=== PATIENT | female | born 1950 | race Caucasian/White ===

== ENCOUNTER 2016-08-26 15:19 | Emergency (ER) | payer MEDICARE, OTHER ==
--- NOTE | ~2016-08-26 | EKG ---
PATIENT: KANNAN KAUR UNIT #: [id number] Ventricular Rate: 76 BPM Atrial Rate: 76 BPM P-R Interval: 158 ms QRS Duration: 74 ms Q-T Interval: 372 ms QTC Calculation(Bezet): 418 ms P [place]: 21 degrees Calculated R [place]: -6 degrees Calculated T [place]: 22 degrees Diagnosis Line: Normal sinus rhythm Diagnosis Line: Low voltage QRS Diagnosis Line: Cannot rule out Inferior infarct (cited on or Diagnosis Line: before 26-AUG-2016) Diagnosis Line: Abnormal ECG Diagnosis Line: When compared with ECG of 20-NOV-2015 18:22, Diagnosis Line: Questionable change in initial forces of Inferior Diagnosis Line: leads Diagnosis Line: Confirmed by ERICA WATTERS MD ([id number]) on 08/26/2016 Diagnosis Line: 10:57:02 PM INTERPRETING MD: DUONG ZARATE
[2016-08-26 13:44] LABS: BASOPHIL% 0.7 % (0-2.5); EOSINOPHIL# 0.1 X10e3 (0-0.7); EOSINOPHIL% 1.5 % (0.0-7.0); HEMATOCRIT 35.1 % (35.0-45.0); HEMOGLOBIN 11.5 gm/dL (12.0-16.0); LYMPHOCYTE% 27.7 % (17.0-45.0); MEAN CELL VOLUME 82.9 FL (83-96); MEAN CORPUSCULAR HEMOGLOBIN 27.1 PG (28-34); MEAN CORPUSCULAR HGB CONC 32.7 g/dL (30-36); MEAN PLATELET VOLUME 9.6 FL (6.5-11.5); MONOCYTE# 0.4 X10e3 (0-1.0); MONOCYTE% 5.5 % (3.0-12.0); NEUTROPHIL# 4.8 X10e3 (1.5-7.1); NEUTROPHIL% 64.6 % (40-75); PLATELET COUNT 186 X10e3 (140-420); RED BLOOD COUNT 4.23 X10e (3.90-5.30); RED CELL DISTRIBUTION WIDTH 13.8 % (11.0-15.5); WHITE BLOOD COUNT 7.4 X10e3 (4.0-10.5)
[2016-08-26 13:47] LABS: DIFF IND NO
[2016-08-26 14:08] LABS: ALBUMIN SERUM 3.6 g/dL (3.5-5.0); ALKALINE PHOSPHATASE 87 U/L (32-92); ALT (SGPT) 20 U/L (10-40); AST (SGOT) 20 U/L (10-42); BILIRUBIN,TOTAL 0.6 mg/dL (0.2-2.0); BLOOD UREA NITROGEN 19 mg/dL (9-23); CALCIUM SERUM 8.7 mg/dL (8.4-10.2); CARBON DIOXIDE 23 mmol/L (22-31); CHLORIDE 108 mmol/L (100-111); GLOM FILT RATE Estimated 58.7 mL/min (>60); GLUCOSE FASTING 130 mg/dL (70-110); POTASSIUM 3.9 mmol/L (3.5-5.1); PROTEIN TOTAL SERUM 6.7 g/dL (6.0-8.3); SODIUM 138 mmol/L (135-145)
[2016-08-26 14:15] LABS: BILIRUBIN, DIRECT <0.1 mg/dL (0.0-0.2); BILIRUBIN,INDIRECT 0.5 mg/dL (0.0-0.9)
[~2016-08-26 15:19] MED LIST: ALBUTEROL17 GM INH; ALDACTAZIDE; AMOXICILLIN875 MG PO; AUGMENTIN PO; BACTRIM DS TABL1 TA1 PO; BP PILL; FLONASE 0.05% N16 GM; FLOXIN OTIC5 M1 OD; HYDROCHLOROTHIA25 MG PO; LISINOPRIL10 MG PO; LORTAB 10 MG-3473 ML PO; LORTAB 10-5001 EACH PO; LORTAB 101 TAB 10/5 PO; NORFLEX100 M1 PO; PREDNISONE PO; TAMIFLU75 M1 PO; TESSALON PERLE100 M1 PO; TUSSIONEX; VITAMIN D400 UNI2 PO; ZESTRIL10 M1 PO; ZITHROMAX PO
[2016-08-26 15:33] LABS: POC - CKMB <1.0 ng/mL (0.0-7.9); POC - TROPONIN <0.05 ng/mL (<=0.05)
== END 2016-08-26 16:02 | disposition home or self-care (01) ==
LOC: CED 15:19
PROVIDERS: Emergency Medicine
DX: R06.02 Shortness of breath (principal); J44.9 Chronic obstructive pulmonary disease, unspecified; I10 Essential (primary) hypertension; Z88.5 Allergy status to narcotic agent; Z79.899 Other long term (current) drug therapy
CPT/HCPCS: 36415; 80048; 80076; 82553; 84484; 85025; 93005; 99284

== ENCOUNTER → 2016-09-03 | Outpatient (CLI) | payer MEDICARE ==
--- NOTE | ~2016-09-03 | CT57 ---
[facility] A Service of [facility] & [facility] RADIOLOGY TEXT RESULTS PATIENT: KANNAN KAUR LOCATION: [facility] : 48 UNIT #: [id number] AGE: [address]: Astrid Clemons SEX: F ORDER DR: [id number] [facility] [address] [place], [place] [address] [id number] O MR#: [id number] Acc #: [id number] NAME: KANNAN KAUR : 1950 SEX: F STUDY DATE/TIME: 09/03/2016 8:23 UNIT: [facility] ROOM: STUDY DESCRIPTION: CT Chest Wo Cont Attending Physician: Astrid Clemons A.P.R.N. Referring Physician: Astrid Clemons A.P.R.N. Ordering Physician: Astrid Clemons A.P.R.N. Primary Care Physician: Rom Small M.D. MEDICAL IMAGING REPORT This report is preliminary unless electronic signature is present EXAM CT of the chest without contrast, 09/03/2016 HISTORY Physician's order states solitary pulmonary nodule. Pulmonary nodules seen on previous CT scans. Patient states cough and shortness of breath for 1 week since carpet and furniture cleaning. History of sarcoidosis. Hypertension. COMPARISON CT chest without contrast 02/13/2016, 07/09/2015, 01/07/2015, 09/13/2015. PROCEDURE 2.0 mm noncontrast axial images through the chest. Sagittal and coronal reformatted images were obtained. TECHNIQUE This CT exam was performed with one or more of the following radiation dose reduction techniques: automatic exposure control, adjustment of mA and/or kV according to patient size, and iterative reconstruction. FINDINGS 2 irregularly marginated noncalcified nodules are redemonstrated in the left upper lobe. The most superior measures 7.0 mm (series 4, image 38). On the 01/07/2015 examination, it measured about 6.0-7.0 mm, as well. It is thought to be stable. A second nodule slightly more inferiorly in the left upper lobe measures about 8.0 mm (series 4, image 52), measuring about 7.0 mm on the 12/28/2014 examination. This very slight difference in the more inferior left upper lobe pulmonary nodule may simply be related to differences in measuring technique, as well as the thicker slices on the 2015 CT. Overall, these nodules are thought to be stable. No new pulmonary nodules are identified. [facility] A Service of [facility] RADIOLOGY TEXT RESULTS PATIENT: KANNAN KAUR LOCATION: [facility] : 49 UNIT #: [id number] AGE: [address]: Astrid Clemons SEX: F ORDER DR: There is band-like linear scarring in the bilateral upper lobes. There is some serpiginous fibrotic change within the perihilar right lower lobe superior segment with chronic right lower lobe central bronchiectasis. Coarse calcifications are demonstrated within mediastinal and bilateral hilar regions, thought to be related to the patient's known history of sarcoidosis or potentially other old granulomatous process. Benign calcified nodule is present centrally in the right upper lobe. No acute airspace disease is identified. Heart size is within normal limits. No pericardial effusion. No pleural effusion. No pathologic adenopathy. Imaged thyroid gland is unremarkable. Stable 1.3 cm right adrenal adenoma. Stable 1.3 cm peripherally calcified splenic artery aneurysm. No acute osseous abnormalities. IMPRESSION 1. 2 noncalcified left upper lobe pulmonary nodules measuring about 7.0 mm and 8 mm, respectively, are not thought to be significantly changed compared to the 12/28/2014 CT chest, which was performed with thicker slice selection. Continued surveillance imaging through December 2016 would be recommended to document 2 years of stability and benignity. 2. No acute chest findings. 3. Extensive calcified granulomatous changes within the mediastinum, hilar regions and right upper lobe, potentially related to the patient's known history of sarcoidosis. 4. 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 5. Stable peripherally calcified splenic artery aneurysm. 6. Stable right adrenal adenoma. Dictated by... Victoria Leggett M.D. THIS IS AN ELECTRONICALLY VERIFIED REPORT Victoria Leggett M.D. at 09/04/2016 7:56 AM TERESA/nathan TD: 09/03/2016 11:30 JOB #: [id number] MEDICAL IMAGING REPORT Page 1 of 1 COPY
== END | disposition home or self-care (01) ==
LOC: CCAT 08:07
DX: R06.02 Shortness of breath (principal); R93.8 Abnormal findings on diagnostic imaging of other specified body structures; R91.8 Other nonspecific abnormal finding of lung field; J84.10 Pulmonary fibrosis, unspecified; J98.09 Other diseases of bronchus, not elsewhere classified; I72.8 Aneurysm of other specified arteries; D35.01 Benign neoplasm of right adrenal gland
CPT/HCPCS: 71250

== ENCOUNTER 2016-09-05 10:45 | Emergency (ER) | payer MEDICARE, OTHER | END 2016-09-05 11:36 | disposition home or self-care (01) | LOC: SED 10:45 | DX: M25.461 Effusion, right knee (principal); J44.9 Chronic obstructive pulmonary disease, unspecified; Z90.49 Acquired absence of other specified parts of digestive tract; Z90.710 Acquired absence of both cervix and uterus; F17.200 Nicotine dependence, unspecified, uncomplicated; Z88.8 Allergy status to other drugs, medicaments and biological substances | CPT/HCPCS: 29530; 96372; 99283; J1885 ==

== ENCOUNTER → 2017-02-11 | Outpatient (CLI) | payer MEDICARE, OTHER ==
--- NOTE | ~2017-02-11 | CR182 ---
[facility] A Service [facility] RADIOLOGY TEXT RESULTS PATIENT: KANNAN KAUR LOCATION: [facility] : 48 UNIT #: [id number] AGE: [address]: Mika Núñez MD SEX: F ORDER DR: [id number] [address] [address] [id number] O MR#: [id number] Acc #: [id number] NAME: KANNAN KAUR : 1950 SEX: F STUDY DATE/TIME: 02/11/2017 12:37 UNIT: SRAD ROOM: STUDY DESCRIPTION: CR Lumbar Spine Bending Only 2 Attending Physician: Mika Núñez M.D. Ordering Physician: Mika Núñez M.D. Primary Care Physician: Rom Small M.D. MEDICAL IMAGING REPORT This report is preliminary unless electronic signature is present. EXAM Lumbar spine lateral flexion/extension views HISTORY Lumbar degenerative disc disease and back pain chronically. Evaluate for instability. TECHNIQUE Lateral views of the lumbar spine were obtained in flexion extension. FINDINGS There is moderate disc space narrowing at L2-3 with satisfactory alignment. At L4-5 there is a grade 1 spondylolisthesis with disc space narrowing and moderate facet arthropathy. The degree of subluxation is unchanged between flexion and extension. At L5-S1 there is a minimal degenerative grade 1 spondylolisthesis with moderate bilateral facet disease. This is also unchanged between flexion/extension. IMPRESSION Degenerative disc and facet disease as described above. No evidence of subluxation between flexion and extension. Dictated by... Rom Morley M.D. THIS IS AN ELECTRONICALLY VERIFIED REPORT Rom Morley M.D. at 02/12/2017 7:04 AM RLF/to TD: 02/11/2017 16:23 JOB #: [id number] [facility] A Service [facility] RADIOLOGY TEXT RESULTS PATIENT: KANNAN KAUR LOCATION: [facility] : 48 UNIT #: [id number] AGE: [address]: Mika Núñez MD SEX: F ORDER DR: MEDICAL IMAGING REPORT Page 1 of 1
== END | disposition home or self-care (01) ==
LOC: SRAD 12:26
DX: M51.36 Other intervertebral disc degeneration, lumbar region (principal)
CPT/HCPCS: 72120